=== PATIENT | male | born 1995 | race Caucasian/White ===

== ENCOUNTER 2017-11-23 20:40 | Emergency (ER) | payer BC ==
[~2017-11-23] VITALS: Ht 193 cm; Wt 69.1 kg
[2017-11-23 20:44] VITALS: BP 133/80; TEMP 97.8
[2017-11-23 21:26] LABS: COLLECTION METHOD CLEAN CATCH
[2017-11-23 21:34] LABS: MUCOUS Present /lpf; PH 6 (5-8); SQUAMOUS EPITHELIAL None Seen /hpf; URINE APPEARANCE Clear; URINE BACTERIA None Seen /hpf; URINE BILIRUBIN Negative (NEGATIVE); URINE BLOOD Negative (NEGATIVE); URINE COLOR Yellow; URINE GLUCOSE Negative (NEGATIVE); URINE KETONE Negative (NEGATIVE); URINE LEUKOCYTE ESTERASE Negative (NEGATIVE); URINE NITRATE Negative (NEGATIVE); URINE PROTEIN(semi-quant) Negative (NEGATIVE); URINE RBC 0-2 /hpf; URINE UROBILINOGEN Negative (NEGATIVE)
[2017-11-23 23:29] VITALS: PULSE 60
== END 2017-11-23 23:31 | disposition home or self-care (01) ==
LOC: COL.ER 20:40
PROVIDERS: Emergency Medicine
DX: N50.811 Right testicular pain (principal)